=== PATIENT | male | born 1930 | race Two or more races ===

== ENCOUNTER 2016-06-19 03:02 | Emergency (ER) | payer MEDICARE ==
[~2016-06-19] VITALS: Ht 175.3 cm; Wt 111.1 kg
--- NOTE | 2016-06-19 03:02 | NUR ---
To bed 4 a 85 yo male bibra with c/o of "steady achy pain on the left side of chest at 5/10, nonradiating." Per patient he was "gasping for air even with a cpap on." Pain lasted for about 5 mins. Upon arrival to er, patient denies any chest pain, no sob. VSS. No signs of acute distress. Breathing even and unlabored. Denies sob. Skin warm and dry. Ekg taken. Dr Art at bedside.
--- NOTE | 2016-06-19 03:20 | NUR ---
xr at bedside.
--- NOTE | 2016-06-19 03:21 | NUR ---
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
[2016-06-19] MEDS ORDERED: AMLO5TAB2 PO (03:25)
[2016-06-19] MEDS ORDERED: CARV3.122 PO (03:25)
[2016-06-19] MEDS ORDERED: UBID10CA4 PO (03:25)
[2016-06-19] MEDS ORDERED: ASCO120G2 MC (03:25)
[2016-06-19] MEDS ORDERED: FURO-145 PO (03:25)
[2016-06-19] MEDS ORDERED: CETI-232 PO (03:25)
[2016-06-19] MEDS ORDERED: [UNRECOGNIZED DRUG - CODE] PO (03:25)
[2016-06-19] MEDS ORDERED: IPRA42SP NS (03:25)
[2016-06-19] MEDS ORDERED: INSU3INS3 SQ (03:25)
[2016-06-19] MEDS ORDERED: FOLI1TAB2 PO (03:25)
[2016-06-19] MEDS ORDERED: SITA50TA PO (03:25)
[2016-06-19] MEDS ORDERED: QUIN40TA27 PO (03:25)
[2016-06-19] MEDS ORDERED: APIX2.5T PO (03:25)
[2016-06-19] MEDS ORDERED: LACT1CAP57 PO (03:25)
[2016-06-19] MEDS ORDERED: ROSU20TA PO (03:25)
[2016-06-19 03:34] LABS: BASOPHILS % (AUTO) 0.2 % (0.0-2.0); EOSINOPHILS # (AUTO) 0.3 /CMM (0.0-0.7); EOSINOPHILS % (AUTO) 3.1 % (0.0-6.0); HEMATOCRIT 44 % (39-51); HEMOGLOBIN 14.4 g/dL (13.5-17.5); LYMPHOCYTES % (AUTO) 12.2 % (20.0-44.0); MEAN CORPUSCULAR HEMOGLOBIN 30 PG (26.0-33.0); MEAN CORPUSCULAR HGB CONC 33 g/dl (31.0-36.0); MEAN CORPUSCULAR VOLUME 92 fL (80-96); MONOCYTES # (AUTO) 1.2 /CMM (0.1-1.30); MONOCYTES % (AUTO) 14.2 % (2.0-12.0); NEUTROPHILS % (AUTO) 70.3 % (43.0-81.0); PLATELET COUNT (AUTO) 191 /CMM (150-450); RDW COEFFICIENT OF VARIATION 14.9 (11.5-15.0); RED BLOOD CELL COUNT(AUTO) 4.78 MIL/uL (4.5-6.0); WHITE BLOOD COUNT (AUTO) 8.5 K/uL (4.3-11.0)
[2016-06-19 04:00] LABS: INR 1.05 (0.87-1.13); PROTHROMBIN TIME 11.3 SECS (9.5-12.7)
[2016-06-19 04:15] VITALS: BP 152/75
[2016-06-19 04:17] LABS: B-TYPE NATRIURETIC PEPTIDE 1356 PG/ML (0-125); CALCIUM, SERUM 9.1 mg/dL (8.5-10.1); CARBON DIOXIDE 25 mmol/L (21-32); CHLORIDE 103 mmol/L (98-107); CREATININE 2.2 mg/dL (0.6-1.3); GLUCOSE 76 mg/dL (74-106); POTASSIUM 4.7 mmol/L (3.5-5.1); SODIUM SERUM 139 mmol/L (136-145); TROPONIN I < 0.017 ng/mL (0.00-0.056); UREA NITROGEN, BLOOD 42 mg/dL (7-18)
--- NOTE | 2016-06-19 04:18 | NUR ---
Report given to Madison SANCHEZ in 3w for jorge.
--- NOTE | 2016-06-19 04:47 | NUR ---
Dr Art at bedside.
--- NOTE | 2016-06-19 04:59 | NUR ---
IV removed. Catheter intact and site benign. Pressure and 4x4 applied to site. No bleeding noted. Patient AMA after health teachings and encouragement, patient verbalized understanding of his decision with the risks mentioned. Form signed. at bedside.
== END 2016-06-19 05:04 | disposition left against medical advice (07) ==
LOC: ER 03:05 → TELE 04:12 → UNDOADMIN 04:12
DX: I50.9 Heart failure, unspecified (principal); I48.91 Unspecified atrial fibrillation; F32.9 Major depressive disorder, single episode, unspecified; E78.5 Hyperlipidemia, unspecified; F17.210 Nicotine dependence, cigarettes, uncomplicated
CPT/HCPCS: 36415; 71010-TC; 80048-TC; 83880; 84484-TC; 85025-TC; 85730-TC; A4606; Z7610